=== PATIENT | female | born 2000 | race Caucasian/White ===

== ENCOUNTER 2025-10-20 16:46 | Emergency (ER) | payer OTHER, SELFPAY ==
[2025-10-20 16:49] VITALS: BP 125/65
--- NOTE | 2025-10-20 18:00 | ED.GENMED ---
History of Present Illness
General
Chief Complaint: Headache
Time Seen by Provider: 10/20/25 17:28
History of Present Illness
History of Present Illness:
25-year-old female without significant past medical history presenting for multiple symptoms. 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 She
got it checked out, noted that there was no reported gas leak. However, anytime that she turns her air conditioning or heat on she can smell it. She notes that she has any headaches, brain fog, memory issues. Symptoms will improve after she is
removed from the vehicle. She notes particularly today she felt amnesic to being in her car and had a pounding headache, which she thought was secondary to having had a faucet on. The symptoms have improved after being removed from the car. Also
notes some generalized chest tightness. Denies focal weakness or numbness or additional acute medical complaint
Phy Exam
Physical Exam
Physical Exam:
General: Well-appearing, no clinical signs of dehydration, nontoxic and in no acute distress
HEENT: protecting airway, pupils equal
Neck: appears supple
CV: Normal heart rate, regular rhythm
Resp: No accessory muscle use, no increased work of breathing, lungs clear to auscultation bilaterally
Abd: no distension
Extremities: No deformities, no swelling
Neuro: alert, no focal neurologic deficit
: deferred
Rectal: deferred
Psych: Normal affect
Skin: Intact
Course
Orders/Labs/Results
Orders:
Orders
10/20/25 17:47
Electrocardiogram (*1) Urgent
Reason for Study: Chest Pain
EKG- Treatment ONCE
CR Chest - 2 Views Urgent
Comment:
Reason For Exam: irritation after inhalation
10/20/25 18:02
Carboxyhemoglobin Urgent
Complete Blood Count/With Diff Urgent
Comprehensive Metabolic Panel Urgent
Abnormal Lab Results
10/20/25
18:02
WBC 3.6 L 10^3/uL
(4.8-10.8)
Absolute Lymphs (auto) 1.0 L 10^3/uL
(1.2-3.4)
Monocytes % 12.0 H %
(1.7-9.3)
Creatinine 0.5 L mg/dL
(0.6-1.0)
Total Protein 8.3 H g/dl
(6.3-8.2)
10/20/25 18:02
10/20/25 18:02
Vital Signs
Initial and Last Documented VS:
Initial Vital Signs
Temp Pulse Resp BP Pulse Ox
98.2 F 71 20 125/65 99
10/20/25 16:49 10/20/25 16:49 10/20/25 16:49 10/20/25 16:49 10/20/25 16:49
Last Documented Vital Signs
Temp Pulse Resp BP Pulse Ox
98.2 F 71 20 125/65 99
10/20/25 16:49 10/20/25 16:49 10/20/25 16:49 10/20/25 16:49 10/20/25 18:09
MDM/Problems Addressed
MDM/Problems Addressed:
25-year-old female presenting to the emergency department for concern of toxic inhalation with brain fog, headache, chest tightness. Vital signs on arrival are normal
On exam patient resting comfortably, no acute distress. Patient symptoms do appear to be exposure related. Notes that after she gets out of the vehicle and spend some time at home, symptoms improved. Main concern at this time would be carbon
dioxide, however lower suspicion given that carbon oxide is odorless. Will screen with laboratory analysis including carboxyhemoglobin. No focal neurologic deficits without concern for central neurologic process. Patient also notes that she has
been having some chest tightness after an elation. Will obtain EKG and chest x-ray imaging. Patient declining any pain medication for headache at this time
19:30 - Patient's labs are unremarkable. Carboxyhemoglobin within normal limits. Chest x-ray without acute cardiopulmonary disease. At this time feel stable for discharge, however recommending that patient remove herself from the exposure and
notes that her car is getting rechecked again. Feel stable for discharge with continued outpatient supportive therapy. Return precautions discussed and patient verbalized understanding
*Pulse Oximetry
SaO2: 99
Oxygen Mode of Delivery: Room air
Patient hypoxic: no
*Critical Care Note
Total Time (30-74mins, 75-104mins- exclusive of procedures): Not Applicable
ED Attending Note
-
Portions of this chart may have been created with voice recognition software.� Occasional wrong word or��sound alike� substitutions may have occurred due to the inherent limitations of voice recognition software.
Discharge Plan
Departure
Referrals:
Zulma Amor DO [Family Provider, Internal Medicine]
Interventions
Interventions:
*Risk Screen - Suicide Last Done: 10/20/25 18:04
*General Assessment Last Done: 10/20/25 16:49
*Neglect/Abuse Screening Last Done: 10/20/25 17:32
*ED COVID-19 Vaccine History Last Done: 10/20/25 18:05
*ED Influenza Vaccine History Last Done: 10/20/25 18:05
[facility] Fall Risk Assessment Tool Last Done: 10/20/25 18:05
ED- Neurological Assessment Last Done: 10/20/25 18:05
Discharge Date and Time
Print Language: UKRAINIAN
[2025-10-20 18:10] LABS: Carboxyhemoglobin 2.4 %
[2025-10-20 18:14] LABS: Hematocrit 41.9 % (37.0-47.0); Hemoglobin 14.1 g/dL (12.0-16.0); Mean Corp Hgb Conc. 33.7 g/dL (33.0-37.0); Mean Corpuscular Volume 84.1 fL (81.0-99.0); Nucleated Red Blood Cells % 0 %; Platelet Count 288 10^3/uL (130-400); Red Cell Dist. Width 13.5 % (11.5-14.5)
[2025-10-20 19:15] LABS: ALT (SGPT) 20 U/L (0-35); AST (SGOT) 30 U/L (14-36); Albumin 4.9 g/dl (3.5-5.0); Alkaline Phosphatase 59 U/L (38-126); Blood Urea Nitrogen 11 mg/dl (7-17); Calcium 9.7 mg/dl (8.4-10.2); Carbon Dioxide 25 mmol/L (22-30); Chloride 102 mmol/L (98-107); Glucose 88 mg/dl (70-99); Potassium 4.0 mmol/L (3.5-5.1); Sodium 136 mmol/L (135-145); Total Protein 8.3 g/dl (6.3-8.2); eGFR > 60.00
== END 2025-10-20 19:43 | disposition home or self-care (01) ==
LOC: EMR 16:46
PROVIDERS: EMERGENCY PHYSICIAN Student in an Organized Health Care Education/Training Program; FAMILY PHYSICIAN Internal Medicine
DX: Z77.118 Contact with and (suspected) exposure to other environmental pollution (principal)
CPT/HCPCS: 99284; 71046; 80053; 82375; 85025; 93005